=== PATIENT | female | born 1975 | race American Indian/Alaskan Native ===

== ENCOUNTER 2016-08-04 14:00 | Emergency (ER) | payer MEDICARE, MEDICAID ==
[2016-08-04 14:19] VITALS: BP 115/74
--- NOTE | 2016-08-04 18:09 | Emergency Department Report ---
ED Headache HPI - General Chief Complaint: Headache Stated Complaint: HEADACHE Time Seen by Provider: 08/04/16 18:06 Source: patient - History of Present Illness Initial Comments: Patient here complaining of headache for the last 5 days. She says she's taken several [id number] prescription without any relief. She reports sore throat and congestion. Patient said that her primary care physician put her on Topamax but it's not working. Patient is also HIV positive for 19 years. She said she went to health [facility] to manage her HIV and she is on 3 medications but she cannot remember medications. She said that she can't remember her last T-cell, but they told her that it was normal and she does not know what her last viral load was. She says she is living in [place] now and she's 1 have to get a clinic in [place] for infectious disease. Timing/Duration: waxing and waning (5 days) Quality: moderate, achy Head Injury Location: frontal Recent Head Trauma: chronic headaches Modifying Factors: improves with: rest Associated Symptoms: nasal congestion, nasal drainage. denies: confusion, fatigue, facial pain, fever/chills, flushing, loss of consciousness, nausea/ vomiting, rash, seizures, sinus infection, stiff neck, vision changes, weakness Allergies/Adverse Reactions: Allergies ibuprofen Adverse Reaction (Verified 08/04/16 14:21) Nausea Home Medications: Ambulatory Orders Amoxicillin [Amoxicillin TAB] 875 mg PO BID #20 tablet 08/04/16 Fluticasone [Flonase] 1 spray NS QDAY #1 bottle 08/04/16 Loratadine [Claritin] 10 mg PO DAILY #14 tablet 08/04/16 Phenol 1.4% [Chloraseptic] 1 spray TP TID PRN #1 bottle 08/04/16 ED Review of Systems ROS: Stated complaint: HEADACHE Other details as noted in HPI Comment: All other systems reviewed and negative Constitutional: denies: chills, fever Eyes: denies: eye pain ENT: throat pain, congestion. denies: ear pain, hearing loss, epistaxis Respiratory: no symptoms reported Cardiovascular: denies: chest pain, palpitations, edema, syncope Gastrointestinal: denies: abdominal pain, nausea, vomiting, diarrhea Genitourinary: denies: urgency, dysuria, frequency, hematuria, discharge Musculoskeletal: denies: back pain, arthralgia Skin: denies: rash Neurological: denies: headache, abnormal gait, vertigo ED Past Medical Hx - Past Medical History Previous Medical History?: Yes Hx Diabetes: Yes Additional medical history: HIV - Surgical History Past Surgical History?: Yes Additional Surgical History: tonsils, knee - Family History Family history: hypertension - Social History Smoking Status: Never Smoker Substance Use Type: None - Medications Home Medications: Home Medications Medication Instructions Recorded Confirmed Last Taken Type Amoxicillin [Amoxicillin TAB] 875 mg PO BID #20 tablet 08/04/16 Unknown Rx Fluticasone [Flonase] 1 spray NS QDAY #1 bottle 08/04/16 Unknown Rx Loratadine [Claritin] 10 mg PO DAILY #14 tablet 08/04/16 Unknown Rx Phenol 1.4% [Chloraseptic] 1 spray TP TID PRN #1 bottle 08/04/16 Unknown Rx ED Physical Exam - General Limitations: No Limitations General appearance: alert, in no apparent distress - Head Head exam: Present: atraumatic, normocephalic, normal inspection - Expanded Head Exam Expanded Head exam: Absent: laceration, abrasion, contusion, hematoma, racoon eyes, mann's sign, general tenderness, tenderness of temporal artery, CSF rhinorrhea , CSF otorrhea - Eye Eye exam: Present: normal appearance, PERRL, EOMI. Absent: periorbital swelling , periorbital tenderness Pupils: Present: normal accommodation - ENT ENT exam: Present: normal exam, normal orophraynx, mucous membranes moist, TM's normal bilaterally (bilateral TMs congested), normal external ear exam, other ( bilateral nasal mucosa congested without erythema. BiLateral frontal and maxillary sinuses nontender to palpate) - Neck Neck exam: Present: normal inspection, full ROM. Absent: tenderness, meningismus, lymphadenopathy - Expanded Neck Exam Expanded Neck exam: Absent: tenderness, midline deformity, anterior neck swelling, tracheal deviation - Respiratory Respiratory exam: Present: normal lung sounds bilaterally. Absent: respiratory distress, wheezes, rales, rhonchi, stridor, chest wall tenderness - Cardiovascular Cardiovascular Exam: Present: regular rate, normal rhythm, normal heart sounds - GI/Abdominal GI/Abdominal exam: Present: soft, normal bowel sounds. Absent: distended, tenderness, guarding, rebound, rigid - Extremities Exam Extremities exam: Present: normal inspection, full ROM, normal capillary refill. Absent: tenderness, pedal edema, joint swelling, calf tenderness - Back Exam Back exam: Present: normal inspection, full ROM. Absent: tenderness, CVA tenderness (R), CVA tenderness (L), muscle spasm, paraspinal tenderness, vertebral tenderness, rash noted - Neurological Exam Neurological exam: Present: alert, oriented X3, normal gait, reflexes normal. Absent: motor sensory deficit - Expanded Neurological Exam Expanded Neurological exam: Absent: innattentive, memory loss-remote event, memory loss- recent event, ataxia, receptive aphasia, expressive aphasia, total aphasia, tremor, protecting the airway Patient oriented to: Present: person, place, time Speech: Present: fluid speech Cranial nerves: EOM's Intact: Normal, Gag Reflex: Normal, Nystagmus: Normal, Facial Sensation: Normal Cerebellar function: Finger to Nose: Normal, Romberg: Abnormal Right, Abnormal Left Upper motor neuron: Pronator Drift: Normal, Sensory Extinction: Normal Sensory exam: Upper Extremity Light Touch: Normal, Upper Extremity Temperature: Normal, UE 2 Point Discrimination: Normal, Lower Extremity Light Touch: Normal, Lower Extremity Temperature: Normal, LE 2 Point Discrimination: Normal Motor strength exam: RUE: 5, LUE: 5, RLE: 5, LLE: 5 DTR: bicep (R): 2+, bicep (L): 2+, tricep (R): 2+, tricep (L): 2+, knee (R): 2+ , knee (L): 2+, ankle (R): 2+, ankle (L): 2+ Best Eye Response ([place]): (4) open spontaneously Best Motor Response ([place]): (6) obeys commands Best Verbal Response ([place]): (5) oriented [place] Total: 15 - Psychiatric Psychiatric exam: Present: normal affect, normal mood - Skin Skin exam: Present: warm, dry, intact, normal color. Absent: rash ED Course Vital Signs 08/04/16 14:16 Temperature 98 F Pulse Rate 78 Respiratory 16 Rate Blood Pressure 115/74 O2 Sat by Pulse 100 Oximetry - Reevaluation(s) Reevaluation #1: 08/04/16 20:13 Patient stable throughout ED course. ED Medical Decision Making - Radiology Data Radiology results: report reviewed CT scan of the head revealed no acute CT findings. - Medical Decision Making ED course: Discussed the patient that her CT scan revealed no acute findings in her brain. I discussed with her that she does have a sinus inflammation and I will treat her with amoxicillin due to her immunocompromised status. I also discussed the patient she could follow-up at [facility] or [facility] for her HIV. Patient does have a primary care physician and I discussed with her she can have him refer her to infectious disease doctor. Also discussed the patient that she needs to follow up with neurologist which I' ll refer her to for chronic headaches. She voices understanding of diagnosis and discharge instructions. Discharged home with Flonase, Claritin, chloraseptic spray for sore throat and amoxicillin Critical care attestation.: If time is entered above; I have spent that time in minutes in the direct care of this critically ill patient, excluding procedure time. ED Disposition Clinical Impression: Headache Qualifiers: Headache type: unspecified Headache chronicity pattern: chronic headache Intractability: not intractable Qualified Code(s): R51 - Headache Acute inflammation of sinus Qualifiers: Sinusitis location: unspecified location Recurrence: not specified as recurrent Qualified Code(s): J01.90 - Acute sinusitis, unspecified Pharyngitis Qualifiers: Pharyngitis/tonsillitis etiology: unspecified etiology Qualified Code(s): J02.9 - Acute pharyngitis, unspecified Disposition: DISCHARGED TO HOME OR SELFCARE Is pt being admited?: No Does the pt Need Aspirin: No Condition: Stable Instructions: Acute Headache (ED), Pharyngitis (ED), Sinusitis (ED) Additional Instructions: Please gargle with warm saltwater 3 times a day to relieve sore throat follow-up with your primary care physician in 2-3 days and have him [facility] Please take medication as prescribed. Can use Chloraseptic spray to relieve sore throat Prescriptions: Amoxicillin [Amoxicillin TAB] 875 mg PO BID #20 tablet Fluticasone [Flonase] 1 spray NS QDAY #1 bottle Loratadine [Claritin] 10 mg PO DAILY #14 tablet Phenol 1.4% [Chloraseptic] 1 spray TP TID PRN #1 bottle PRN Reason: Sore Throat Referrals: PRIMARY CARE, [Primary Care Provider] - 2-3 Days [facility] [Outside] - 2-3 Days Forms: Work/School Release Form(ED)
--- NOTE | 2016-08-04 19:31 | Cat Scan Report ---
FINAL REPORT EXAM: CT HEAD/BRAIN WO CON HISTORY: headache with neuro abnormal TECHNIQUE: CT imaging acquired through the head without intravenous contrast. Transaxial reformations are provided. PRIORS: None. FINDINGS: The ventricles, cisterns and sulci are normal. No intraparenchymal or extra-axial mass, hemorrhage, or mass effect. Trevino and white-matter differentiation is normal. Normal spherical shape of the globes. Paranasal sinuses and mastoid air cells are clear. No skull or facial fracture visualized. IMPRESSION: No acute intracranial abnormality. Consider MRI for further evaluation.
== END 2016-08-04 20:31 | disposition home or self-care (01) ==
LOC: ED 14:00
DX: R51 Headache (principal); J01.90 Acute sinusitis, unspecified; J02.9 Acute pharyngitis, unspecified; E11.9 Type 2 diabetes mellitus without complications; Z88.6 Allergy status to analgesic agent; Z21 Asymptomatic human immunodeficiency virus [HIV] infection status
CPT/HCPCS: 70450

== ENCOUNTER 2016-09-15 09:41 | Emergency (ER) | payer MEDICAID ==
[2016-09-15 10:15] VITALS: BP 125/80
--- NOTE | 2016-09-15 11:20 | Emergency Department Report ---
ED Back Pain/Injury HPI - General Chief Complaint: Back Pain/Injury Stated Complaint: BACK PAIN Time Seen by Provider: 09/15/16 11:07 Source: patient Limitations: No Limitations - History of Present Illness Initial Comments: This is a 45-year-old female that presents with chronic pain in the lumbar area. Patient reports pain is shooting down to the left leg. Patient stated has been diagnosed with sciatica about 6-7 years ago on a care doctor. Patient denies any recent trauma, falls or injury to the area. Patient denies any numbness or tingling sensation extremities. Patient denies any bladder or bowel stability. Patient stated has been taking hydrocodone for pain when necessary but has not been taking it for about 4-5 months, but now the pain has returned and she needs medication refill. Patient stated has a primary care doctor but due to insurance is unable to see the scene doctor. Patient stated is in the process of on a new primary care doctor. Patient does not seem toxic or ill appearance. No signs of distress noted. MD Complaint: back pain -: Gradual (chronic) Similar Symptoms Previously: Yes (neck6-7 years) Radiation: buttocks, left leg Severity scale (0 -10): 8 Quality: aching Consistency: constant Improves With: medication (hydrocodone) Worsens With: movement, sitting upright, walking Associated Symptoms: denies other symptoms. denies: confusion, weakness, chest pain, numbness, difficulty walking, cough, difficulty urinating, diaphoresis, incontinence, fever/chills, constipation, headaches, abdominal pain, loss of appetite, malaise, nausea/vomiting, rash, seizure, shortness of breath, syncope - Related Data Previous Rx's Medication Instructions Recorded Last Taken Type Amoxicillin [Amoxicillin TAB] 875 mg PO BID #20 tablet 08/04/16 Unknown Rx Fluticasone [Flonase] 1 spray NS QDAY #1 bottle 08/04/16 Unknown Rx Loratadine [Claritin] 10 mg PO DAILY #14 tablet 08/04/16 Unknown Rx Phenol 1.4% [Chloraseptic] 1 spray TP TID PRN #1 bottle 08/04/16 Unknown Rx HYDROcodone/APAP 5-325 [[place] 1 each PO Q6HR PRN 5 Days 09/15/16 Unknown Rx 5-325 mg TAB] HYDROcodone/APAP 5-325 [[place] 1 each PO Q6HR PRN #20 tablet 09/15/16 Unknown Rx 5/325] Allergies Allergy/AdvReac Type Severity Reaction Status Date / Time tramadol Allergy Nausea Verified 09/15/16 10:12 ibuprofen AdvReac Nausea Verified 08/04/16 14:21 ED Review of Systems ROS: Stated complaint: BACK PAIN Other details as noted in HPI Constitutional: denies: chills, fever Eyes: denies: eye pain, eye discharge, vision change ENT: denies: ear pain, throat pain Respiratory: denies: cough, shortness of breath, wheezing Cardiovascular: denies: chest pain, palpitations Endocrine: no symptoms reported Gastrointestinal: denies: abdominal pain, nausea, diarrhea Genitourinary: denies: urgency, dysuria, discharge Musculoskeletal: denies: back pain, joint swelling, arthralgia Skin: denies: rash, lesions Neurological: denies: headache, weakness, paresthesias Psychiatric: denies: anxiety, depression Hematological/Lymphatic: denies: easy bleeding, easy bruising ED Past Medical Hx - Past Medical History Previous Medical History?: Yes Hx Diabetes: Yes Additional medical history: HIV, back pain - Surgical History Past Surgical History?: Yes Additional Surgical History: tonsils, knee - Social History Smoking Status: Never Smoker Substance Use Type: Prescribed - Medications Home Medications: Home Medications Medication Instructions Recorded Confirmed Last Taken Type Amoxicillin [Amoxicillin TAB] 875 mg PO BID #20 tablet 08/04/16 Unknown Rx Fluticasone [Flonase] 1 spray NS QDAY #1 bottle 08/04/16 Unknown Rx Loratadine [Claritin] 10 mg PO DAILY #14 tablet 08/04/16 Unknown Rx Phenol 1.4% [Chloraseptic] 1 spray TP TID PRN #1 bottle 08/04/16 Unknown Rx HYDROcodone/APAP 5-325 [[place] 1 each PO Q6HR PRN 5 Days 09/15/16 Unknown Rx 5-325 mg TAB] HYDROcodone/APAP 5-325 [[place] 1 each PO Q6HR PRN #20 tablet 09/15/16 Unknown Rx 5/325] ED Physical Exam - General Limitations: No Limitations General appearance: alert, in no apparent distress - Head Head exam: Present: atraumatic, normocephalic - Eye Eye exam: Present: normal appearance, PERRL, EOMI Pupils: Present: normal accommodation - ENT ENT exam: Present: normal exam, normal orophraynx, mucous membranes moist, TM's normal bilaterally - Neck Neck exam: Present: normal inspection - Respiratory Respiratory exam: Present: normal lung sounds bilaterally. Absent: respiratory distress - Cardiovascular Cardiovascular Exam: Present: regular rate, normal rhythm. Absent: systolic murmur, diastolic murmur, rubs, gallop - GI/Abdominal GI/Abdominal exam: Present: soft, normal bowel sounds - Extremities Exam Extremities exam: Present: normal inspection, full ROM, normal capillary refill. Absent: tenderness, calf tenderness - Back Exam Back exam: Present: normal inspection, full ROM. Absent: tenderness, CVA tenderness (R), CVA tenderness (L), muscle spasm, paraspinal tenderness, vertebral tenderness - Expanded Back Exam Expanded Back exam: Present: normal rectal tone (as per patient). Absent: saddle anesthesia Back exam: Negative Straight Leg Raising: Left, Right - Neurological Exam Neurological exam: Present: alert, oriented X3, CN II-XII intact, normal gait - Psychiatric Psychiatric exam: Present: normal affect, normal mood - Skin Skin exam: Present: warm, dry, intact, normal color. Absent: rash ED Course Vital Signs 09/15/16 10:12 Temperature 98.8 F Pulse Rate 84 Respiratory 18 Rate Blood Pressure 125/80 O2 Sat by Pulse 100 Oximetry ED Medical Decision Making - Medical Decision Making ED course: 41-year-old female with chronic lumbar pain 1- I instructed the patient to follow with her primary care doctor as soon as possible for chronic lumbar pain. 2- patient is discharged on hydrocodone for 5 days. I explained to the patient that Hydrocodone has codeine and patient has allergies to tramadol, patient stated she takes only hydrocodone at home if back pain presents. Denies allergies to hydrocodone. I instructed the patient not use any machinery while taking hydrocodone. 3- patient received Toradol IM 60 mg for pain. Patient stated no allergies to Toradol because she taken previously. I explained to the patient that Toradol has ibuprofen, but the patient stated that she has no allergies to this medication with no symptoms of nausea or any signs of allergies. Patient tolerated well no signs distress as noted. 4- at the time of discharge the patient denies toxic or ill appearance. Patient agrees to treatment plan and will follow up with her primary care doctor for chronic lumbar pain. Patient stated no further questions noted. Critical care attestation.: If time is entered above; I have spent that time in minutes in the direct care of this critically ill patient, excluding procedure time. ED Disposition Disposition: DISCHARGED TO HOME OR SELFCARE Is pt being admited?: No Does the pt Need Aspirin: No Condition: Stable Instructions: Sciatica (ED), Lumbar Radiculopathy (ED) Additional Instructions: Please follow up with her primary care doctor in 3-5 days. Do not use any heavy machinery while taking hydrocodone. If any sinus symptoms worsen such as bladder instability, worsening pain, shortness of breath, chest pain, numbness or tingling sensation extremities report back to emergency room. Prescriptions: HYDROcodone/APAP 5-325 [[place] 5-325 mg TAB] 1 each PO Q6HR PRN 5 Days PRN Reason: Pain HYDROcodone/APAP 5-325 [[place] 5/325] 1 each PO Q6HR PRN #20 tablet PRN Reason: Pain Referrals: PRIMARY CARE, [Primary Care Provider] - 3-5 Days LIANNA CHEN MD [Referring] - 3-5 Days CHYNA JOHN MD [Referring] - 3-5 Days CATRINA DE LA O MD [Referring] - 3-5 Days ADRIAN FAGAN MD [Referring] - 3-5 Days GOLD MORE MD [Staff Physician] - 3-5 Days Forms: Work/School Release Form(ED)
[2016-09-15] MEDS ORDERED: TORADOL IM ONE (11:23)
== END 2016-09-15 12:08 | disposition home or self-care (01) ==
LOC: ED 09:41
DX: M54.5 Low back pain (principal); G89.29 Other chronic pain; E11.9 Type 2 diabetes mellitus without complications; Z21 Asymptomatic human immunodeficiency virus [HIV] infection status; Z88.6 Allergy status to analgesic agent
CPT/HCPCS: 96372; 99282; J1885